=== PATIENT | female | born 1980 | race Caucasian/White ===

== ENCOUNTER 2019-01-27 06:46 | Day surgery (SDC) ==
[2019-01-21 14:31] LABS: BASO# 0.02 X1000 (0.0-0.2); BASO% 0.2 % (0.0-0.8); EOS# 0.07 X1000 (0.0-0.7); EOS% 0.8 % (0.0-10.0); HEMATOCRIT 42.1 % (37.0-47.0); HEMOGLOBIN 13.7 g/dL (12.0-16.0); LYMPH% 28.7 % (20.5-51.1); MCH 30.2 PG (27-31); MCHC 32.5 g/dL (33-37); MCV 92.9 FL (81-99); MONO# 0.54 X1000 (0.11-0.59); MONO% 6.2 % (1.7-9.3); MPV 9.4 FL (7.4-10.4); NEUT# 5.58 X1000 (1.4-6.5); NEUT% 64.1 % (42.2-75.2); PLT 280 X1000 (130-400); RBC 4.53 XMIL (4.2-5.4); RDW 12.7 % (11.5-14.5); WBC 8.71 X1000 (4.8-10.8)
--- NOTE | 2019-01-21 14:41 | EKG Report ---
Test Performed on : 01/21/2019 2:02:40 PM Test Reason : PAT Blood Pressure : / mmHG Vent. Rate : 062 BPM Atrial Rate : 062 BPM P-R Int : 124 ms QRS Dur : 108 ms QT Int : 430 ms P-R-T Axes : 050 068 062 degrees QTc Int : 436 ms Normal sinus rhythm. Incomplete right bundle branch block Borderline ECG When compared with ECG of 09-JAN-2018 14:50, Vent. rate has decreased BY 32 BPM QT has shortened Confirmed by Des LUNDY, Iglesia Mcrae ([id number]) on 01/21/2019 10:17:26 PM
--- NOTE | 2019-01-27 07:44 | Diag Imaging Result Doc PS360 ---
EXAM: LYMPHOSCINTIGRAPHY W/IMG 01/27/2019 HISTORY: Intraductal carcinoma in situ of left breast TECHNIQUE: 560 uCi of technetium 99 M [place] intradermally COMMENT: There is a focus of uptake lateral to the injection site presumably in an axillary node. IMPRESSION: Axillary sentinel node. Electronically signed by Mason Salcedo 01/27/2019 7:41 AM
[2019-01-27] MEDS ORDERED: REGLAN ONE (08:16)
[2019-01-27] MEDS ORDERED: PEPCID ONE (08:16)
[2019-01-27] MEDS ORDERED: LR 1,000 ML ONE (08:16)
[2019-01-27] MEDS ORDERED: VANCOMYCIN 1 GM/NS 1 GM/250 ML IVPB ONE (08:16)
[2019-01-27] MEDS ORDERED: DIPRIVAN 1% ONE (08:26)
[2019-01-27] MEDS ORDERED: METHYLENE BLUE 0.5% ONE (08:27)
[2019-01-27] MEDS ORDERED: FENTANYL ONE (08:27)
[2019-01-27] MEDS ORDERED: DUONEB (A & A) INH ONE (08:27)
[2019-01-27] MEDS ORDERED: QUELICIN (DOSE) ONE (08:28)
[2019-01-27] MEDS ORDERED: XYLOCAINE-MPF 2% ONE ×2 (08:28→08:32)
[2019-01-27] MEDS ORDERED: SODIUM CHLORIDE 0.9% ONE (08:37)
[2019-01-27] MEDS ORDERED: ROBINUL ONE (08:40)
[2019-01-27] MEDS ORDERED: DECADRON ONE (09:42)
[2019-01-27] MEDS ORDERED: ZOFRAN ONE (09:42)
[2019-01-27] MEDS ORDERED: EPHEDRINE ONE (09:50)
[2019-01-27] MEDS ORDERED: KETAMINE ONE (10:13)
[2019-01-27] MEDS ORDERED: OFIRMEV 1000 MG/ISOTONIC SOLN 1,000 MG/100 ML BOTTLE ONE (10:30)
[2019-01-27] MEDS: DILAUDID ONE ×6 (11:33→12:10)
[2019-01-27] MEDS ORDERED: LR 500 ML ONE (11:36)
[2019-01-27] MEDS: PHENERGAN ONE ×5 (11:45→12:14)
[2019-01-27] MEDS ORDERED: PERCOCET-10 ONE (11:54)
--- NOTE | 2019-01-27 12:00 | OPERATIVE NOTE ---
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 PROCEDURES PERFORMED: 1. Right mastectomy. 2. [place] lymph node mapping on the left. 3. Injection of methylene blue into the left breast. 4. Left mastectomy. 5. [place] lymph node biopsy on the left. SURGEON: Jaden Montemayor MD. MANAGER PHP: None. ANESTHESIA: General endotracheal. OPERATIVE FINDINGS: [place] lymph node #1 through 3 were all benign tissue. COMPLICATIONS: None at the time of this dictation. ESTIMATED BLOOD LOSS: 350 mL. SPECIMENS REMOVED: 1. Right breast with single stitch medial and double stitch superior. 2. Left breast single stitch medial and double stitch superior. 3. [place] lymph node #1. 4. [place] lymph node #2. 5. [place] lymph node #3. 6. Additional axillary tissue. DRAINS: Four 10-Tristanian drains, two on each side. BRIEF HISTORY: A 38-year-old female with biopsy-proven DCIS. It was multicentric. It was felt that she would benefit from a mastectomy and sentinel lymph node biopsy. She wanted to proceed with a right prophylactic mastectomy. I had sent her to Dr. Oro who wanted to do a delayed reconstruction but did place skin incision pro on her breasts prior to the surgery to help with future reconstruction. We discussed with the patient the risks, benefits, and alternatives of the procedure. All questions were answered. DESCRIPTION OF PROCEDURE: After informed consent was obtained, the patient was brought to the operative theatre, transferred to the operating table, and placed in the supine position. General endotracheal anesthesia was then performed without complication. A formal time- out was then performed, confirming patient, date, and procedure. All were in agreement. At that time, we prepped and draped the breast. I injected methylene blue to the left breast and massaged the breast for 4 to 5 minutes. It should be noted that the patient also had injection of radiotracers into her left breast by nuclear medicine. Once we had prepped and draped again the breasts, we turned our attention first to the right side, which had no cancer it preoperatively. Using the incision lines on the skin, we made incisions to remove the breast. We removed it all the way down in its entirety, medially to the sternum, superiorly to the second rib, laterally to the axillary contents, and inferiorly to the inframammary fold, removing this intact and oriented as noted above. We then placed two drains, one above the pectoralis and one above the axillary contents. We then closed the skin in layers using Vicryl and Biosyn for the skin. We maintained hemostasis with electrocautery and we did suture the drains in place. At that point, we turned our attention to the left side. We covered the right side and started our incisions on the left side. In a standard fashion, we made our mastectomy. We did use the incisions marked by Dr. Oro. We removed the breast in its entirety in a similar fashion to the right breast. We then turned our attention to doing the sentinel lymph node biopsy. We dissected out 3 lymph nodes in the axillary pad of the left side that took up the radiotracers. They also had methylene blue in them, confirming that there were likely the sentinel lymph nodes but dual confirmation. We sent these off. All pathology came back on preliminary as benign. We irrigated out the wound, as we had irrigated out the right side. We had also oriented the left breast in a similar way as we had oriented the right breast. We then closed it in a similar fashion after placing two drains and suturing the drains in place. We closed the skin in layers using 3-0 Vicryl and 4-0 Biosyn. The patient had sterile dressings applied. She tolerated the procedure well. We will watch her overnight. cc: MD YANG Shoemaker
[2019-01-27] MEDS ORDERED: ZOFRAN IV PRN (13:00)
[2019-01-27] MEDS ORDERED: PRILOSEC PO PRN (13:36)
[2019-01-27] MEDS ORDERED: [UNRECOGNIZED DRUG - OTHER] PO PRN (13:36)
[2019-01-27] MEDS: PERCOCET-10 PO PRN ×2 (16:45→21:16)
[2019-01-27] MEDS ORDERED: NICODERM PATCH TD SCH (18:15)
[2019-01-27] MEDS ORDERED: CATAPRES PO SCH (21:00)
[2019-01-27] MEDS ORDERED: PRAVACHOL PO SCH (21:00)
[2019-01-27] MEDS ORDERED: PRINIVIL PO SCH (21:00)
[2019-01-28] MEDS: PERCOCET-10 PO PRN ×2 (01:23→05:45)
[2019-01-28] MEDS ORDERED: PRINIVIL PO SCH (05:00)
[2019-01-28] MEDS ORDERED: LINZESS PO SCH (05:00)
[2019-01-28] MEDS ORDERED: KLOR-CON PO SCH (05:00)
[2019-01-28] MEDS ORDERED: METAMUCIL PO SCH (05:00)
[2019-01-28] MEDS ORDERED: PROZAC PO SCH (05:00)
[2019-01-28] MEDS ORDERED: SYNTHROID PO SCH (05:00)
[2019-01-28] MEDS ORDERED: METHADONE PO SCH (05:00)
[2019-01-28] MEDS ORDERED: THERA M PLUS PO SCH (05:00)
[2019-01-28] MEDS ORDERED: COLACE PO SCH (05:00)
[2019-01-28 06:03] VITALS: BP 123/68
--- NOTE | 2019-01-28 06:35 | GENERAL SURGERY PROGRESS NOTE ---
DATE: 01/28/2019 The patient is doing well. She is eager to go home. Her drains looks serosanguineous. She has been hemodynamically stable. Her incisions do not show any obvious hematoma. From a surgical point of view, she can go home. She is currently postoperative day #1 from bilateral mastectomy. cc: Jaden Montemayor MD
== END 2019-01-28 08:09 | disposition home or self-care (01) ==
LOC: 4N 06:46 → OPS 06:46 → PAT 06:46 → OPS 01-28 08:09
PROVIDERS: ATTEND Surgery
PROC: GE.BXSN (2019-01-27 09:09)